=== PATIENT | female | born 1990 | race African-American/Black ===

== ENCOUNTER 2021-04-23 23:01 | Emergency (ER) | payer OTHER ==
[~2021-04-23] VITALS: Ht 160 cm; Wt 76.7 kg
[2021-04-23 23:04] VITALS: BP 129/84
[2021-04-23] MEDS ORDERED: ACETAMINOPHEN PO (23:09)
== END 2021-04-24 01:00 | disposition home or self-care (01) ==
LOC: ER 23:01
DX: U07.1 COVID-19 (principal)